=== PATIENT | female | born 1940 | race Native Hawaiian/Other Pacific Islander ===

== ENCOUNTER 2017-02-15 10:13 | Outpatient (CLI) | payer OTHER | END 2017-02-15 19:02 | disposition home or self-care (01) | LOC: MAMMO 10:13 | DX: Z12.31 Encounter for screening mammogram for malignant neoplasm of breast (principal); M81.0 Age-related osteoporosis without current pathological fracture | CPT/HCPCS: G0202-TC ==

== ENCOUNTER 2021-04-02 08:17 | Outpatient (CLI) | payer OTHER ==
[~2021-04-02] VITALS: Ht 162.6 cm; Wt 68.0 kg
== END 2021-04-02 19:28 | disposition home or self-care (01) ==
LOC: INF 08:17
PROVIDERS: ATTEND Family Medicine
DX: D64.89 Other specified anemias (principal)
CPT/HCPCS: 36415; 36430; 85014; 85018; 86850; 86900; 86901; 86922; P9016

== ENCOUNTER 2021-04-06 10:55 | Outpatient (CLI) | payer OTHER ==
[~2021-04-06] VITALS: Ht 160 cm; Wt 83.9 kg
[2021-04-06 13:25] VITALS: BP 128/44; TEMP 98.6
== END 2021-04-06 19:33 | disposition home or self-care (01) ==
LOC: INF 10:55
PROVIDERS: ATTEND Family Medicine
PROC: 30233N1 Transfusion of Nonautologous Red Blood Cells into Peripheral Vein, Percutaneous Approach (ICD-10-PCS; principal; 2021-04-06)
DX: D64.9 Anemia, unspecified (principal)
CPT/HCPCS: 85014; 85018; 96365; Q0138

== ENCOUNTER 2021-04-13 12:41 | Outpatient (CLI) | payer OTHER ==
[~2021-04-13] VITALS: Ht 160 cm; Wt 83.9 kg
[2021-04-13 13:04] VITALS: BP 137/52; TEMP 98.2
== END 2021-04-13 20:07 | disposition home or self-care (01) ==
LOC: INF 12:41
PROVIDERS: ATTEND Family Medicine
DX: D64.9 Anemia, unspecified (principal)
CPT/HCPCS: 36591; 85014; 85018; 96365; Q0138

== ENCOUNTER 2021-04-20 11:26 | Outpatient (CLI) | payer OTHER ==
[2021-04-20 11:58] LABS: PLATELET COUNT 299 K/uL (152-353)
[2021-04-20 12:09] LABS: POTASSIUM 3.9 mmol/L (3.6-5.2)
== END 2021-04-20 19:07 | disposition home or self-care (01) ==
LOC: LABW 11:26
PROVIDERS: ATTEND Nurse Practitioner Family
DX: D50.8 Other iron deficiency anemias (principal)
CPT/HCPCS: 36415; 80053; 85027